=== PATIENT | female | born 1975 ===

== ENCOUNTER 2023-03-30 12:46 | Outpatient (CLI) | payer MEDICARE, MEDICAID, SELFPAY ==
--- NOTE | 2023-03-30 12:45 | RT.EKG_ITS ---
APPROVED REPORT Exam: Resting ECG Reason for Exam: High Risk Medication Patient Location: O HR:68 bpm ECG Measurements Heart Rate 68 AXIS NV 184 P 53 QRSd 98 QRS 54 QT 406 T 54 QTc 432 Conclusion Sinus rhythm...normal P axis, V-rate 50- 99 Baseline wander in lead(s) II,III,aVR,aVF,V1,V2,V4 Normal Electrocardiogram
== END 2023-03-30 12:47 | disposition home or self-care (01) ==
PROVIDERS: Visit Provider Family Medicine
DX: Z79.899 Other long term (current) drug therapy (principal)
CPT/HCPCS: 93005; 93010

== ENCOUNTER 2024-10-20 08:04 | Outpatient (CLI) | payer MEDICARE, MEDICAID, SELFPAY ==
--- NOTE | 2024-10-20 08:00 | RT.EKG_ITS ---
APPROVED REPORT Exam: Resting ECG Reason for Exam: High Risk Medication Use Patient Location: O HR:79 bpm ECG Measurements Heart Rate 79 AXIS SD 169 P 30 QRSd 94 QRS 48 QT 433 T 45 QTc 497 Conclusion Sinus rhythm...normal P axis, V-rate 50- 99 Borderline prolonged QT interval...QTc >485mS
== END 2024-10-20 08:05 | disposition home or self-care (01) ==
PROVIDERS: Visit Provider Family Medicine
DX: Z79.899 Other long term (current) drug therapy (principal)
CPT/HCPCS: 93005; 93010